=== PATIENT | female | born 1965 | race Caucasian/White ===

== ENCOUNTER 2019-11-23 17:06 | Emergency (ER) | payer OTHER, SELFPAY ==
[2019-11-23 17:15] VITALS: BP 137/70; PULSE 89; RESP 18; TEMP 36.5; O2SAT 97
--- NOTE | 2019-11-23 17:15 | ED.GENADULT ---
HPI - General Adult General Chief complaint: Skin/Abscess/Foreign Body Stated complaint: RASH TRUNK Time Seen by Provider: 11/23/19 17:19 Source: patient Mode of arrival: ambulatory Limitations: no limitations History of Present Illness HPI narrative: 54-year-old female patient presents to the [facility] with complaints of rash for the past week. Patient states she has had these course of bumps over various parts of her body especially her legs and arms. Patient states that she did just get back from [place] about a week ago. Patient states she has had similar bumps to her other leg as well that is been there for over a year. Patient states that she does have a boat and she does have a lot of sun exposure recently. Patient denies any itching. Denies any surrounding redness or discharge coming from the bump area. Patient states she has been using some lotion and some massage oil to the area. Patient denies any pain to the area. Related Data Home Medications Medication Instructions Recorded Confirmed alprazolam 0.25 mg BID 11/23/19 11/23/19 escitalopram oxalate 10 mg DAILY 11/23/19 11/23/19 estradiol 1 mg DAILY 11/23/19 11/23/19 estradiol-norethindrone acet 1 tablet DAILY 11/23/19 11/23/19 [Mimvey] levothyroxine 25 mcg DAILY 11/23/19 11/23/19 progesterone micronized 100 mg DAILY 11/23/19 11/23/19 temazepam 30 mg DAILY 11/23/19 11/23/19 Allergies Allergy/AdvReac Type Severity Reaction Status Date / Time No Known Allergies Allergy Verified 11/23/19 17:11 Review of Systems Review of Systems: Narrative: CONSTITUTIONAL: Denies fever, chills, or sweats. EYES: Denies visual changes, redness, or discharge. ENT: Denies rhinorrhea, congestion, sore throat, or otalgia. CARDIOVASCULAR: Denies chest pain, palpitations, or edema. RESPIRATORY: Denies cough or dyspnea. GASTROINTESTINAL: Denies abdominal pain, nausea, vomiting, or diarrhea. GENITOURINARY: Denies dysuria or hematuria. SKIN: Positive rash to left leg, bilateral arms and trunk x1 week MUSCULOSKELETAL: Denies back pain, joint pain, or myalgia. NEUROLOGIC: Denies headache, numbness, or weakness. PSYCHIATRIC: Denies anxiety or depression. PMFSH Social History Social History Gender identity (if verbalized by the patient): Female Comments At the time of my signature I agree with nursing past medical history, surgical, social, and family history. There is no relevant family history pertinent to the presenting complaint. Exam Narrative: Exam Narrative: GENERAL: Well-appearing, well-nourished, and in no acute distress. HEAD: Normocephalic, atraumatic. EYES: PERRLA and EOMI. ENT: Nares clear, no rhinorrhea or epistaxis. Mucous membranes moist. NECK: Supple. No lymphadenopathy CHEST: Clear to auscultation. No respiratory distress. HEART: Regular rate and rhythm. No murmur heard. Normal peripheral pulses. ABDOMEN: Soft, nontender, nondistended, normal active bowel sounds. EXTREMITIES: Normal range of motion. No edema. SKIN: Patient has very coarse bumpy rash noted to anterior upper leg, the forearm and upper arm of the left side, the forearm and upper arm of the right side, as well as to the abdomen area. There is no surrounding erythema no discharge coming from the area. No signs symptoms of infection. No complaints of itchiness. NEURO: No focal deficits. Alert and oriented x3. Course Vital Signs Vital signs: Vital Signs Temperature 36.5 C 11/23/19 17:15 Pulse Rate 89 11/23/19 17:15 Respiratory Rate 18 11/23/19 17:15 Blood Pressure 137/70 11/23/19 17:15 Pulse Oximetry 97 11/23/19 17:15 Temperature 36.5 C 11/23/19 17:15 Pulse Rate 89 11/23/19 17:15 Respiratory Rate 18 11/23/19 17:15 Blood Pressure 137/70 11/23/19 17:15 Pulse Oximetry 97 11/23/19 17:15 Vital signs reviewed. The patient has been informed that they may have pre-hypertension or Hypertension based on a BP re
== END 2019-11-23 17:38 | disposition home or self-care (01) ==
PROVIDERS: Emergency Provider Nurse Practitioner Family; PCP Nurse Practitioner Adult Health
DX: L30.9 Dermatitis, unspecified (principal); E03.9 Hypothyroidism, unspecified; F41.9 Anxiety disorder, unspecified; F32.9 Major depressive disorder, single episode, unspecified
CPT/HCPCS: 99213; G0463

== ENCOUNTER → 2020-03-04 15:06 | Outpatient (REF) | payer OTHER, SELFPAY | LOC: ANHLAB 15:06 | PROVIDERS: PCP Nurse Practitioner Adult Health; Visit Provider Nurse Practitioner Family | DX: L72.11 Pilar cyst (principal) | CPT/HCPCS: 88304 ==

== ENCOUNTER 2020-05-30 00:31 | Outpatient (CLI) | payer OTHER, SELFPAY ==
[2020-05-30 18:11] LABS: SARS-CoV-2 RNA PCR Negative
== END 2020-05-30 00:32 | disposition home or self-care (01) ==
LOC: ANHCOVIDDT 00:31
PROVIDERS: PCP Family Medicine; Visit Provider Surgery Plastic and Reconstructive Surgery
DX: Z01.812 Encounter for preprocedural laboratory examination (principal); Z11.59 Encounter for screening for other viral diseases
CPT/HCPCS: 87635; C9803; U0003

== ENCOUNTER 2020-06-02 01:51 | Day surgery (SDC) | payer OTHER, SELFPAY ==
[2020-05-20 13:32] VITALS: BMI 30.7
[2020-06-02] VITALS (9 sets, daily range): BP systolic 118–148; BP diastolic 68–77; PULSE 93–113; RESP 10–20; TEMP 36.2–36.5; O2SAT 95–100
[2020-06-02] MEDS: LACTATED RINGERS 1,000 ML 30 ML IV CONT ×2 (11:50→14:34)
--- NOTE | 2020-06-02 12:34 | WPDANESEPPF ---
Anes - Initial Pre Proc Eval Procedure: Operation Date: 06/02/20 13:45 Proposed Procedures p Bilateral Breast Implant Exchange - Ian Bunch MD Date/Time: 06/02/20 12:34 Surgeon: Ian Bunch MD Pre Op Diagnosis: Hx Breast Implants Patient Data Age: 55 Gender: F Height: 5 ft 2 in Weight: 76 kg Last Vital Signs Temp 36.5 C 06/02/20 11:46 Pulse 93 06/02/20 11:46 Resp 18 06/02/20 11:46 BP 118/74 06/02/20 11:46 Pulse Ox 97 06/02/20 11:46 Allergies Allergy/AdvReac Type Severity Reaction Status Date / Time No Known Allergies Allergy Verified 06/02/20 12:01 Home Medications Medication Instructions Recorded Confirmed Type alprazolam 0.25 mg PO HS PRN 11/23/19 06/02/20 History cetirizine [Zyrtec] 10 mg PO DAILY #30 tablet 11/23/19 06/02/20 Rx escitalopram oxalate 10 mg PO DAILY 11/23/19 06/02/20 History estradiol 1 mg PO DAILY 11/23/19 06/02/20 History levothyroxine 25 mcg PO DAILY 11/23/19 06/02/20 History progesterone micronized 100 mg PO DAILY 11/23/19 06/02/20 History temazepam 30 mg PO HS 11/23/19 06/02/20 History carisoprodol 350 mg tablet 350 mg PO TID PRN #21 tablet 05/18/20 06/02/20 Rx oxycodone-acetaminophen 5 mg-325 1 tablet PO Q6H PRN #15 tablet 05/18/20 06/02/20 Rx mg tablet ergocalciferol (vitamin D2) 50,000 unit PO WEEKLY 05/20/20 06/02/20 History Patient hx anesthesia problems: none Family hx anesthesia problems: none PMFSH Family History Family History Grandparent Diabetes mellitus Family history of Alzheimer's disease Other Family history of cardiovascular disease Social History Social History Smoking packs per day: 0.5 Smoking cigarettes per day: 10.0 Years smoked: 7 Smoking pack-years: 3.50 Smoking status: Current some day smoker Tobacco type: cigarettes Additional smoking assessment comments: QUIT AT AGE 24 Alcohol intake: current Drinks per week: 1 Gender identity (if verbalized by the patient): Female Spiritual care concerns: No Anes - Eval Final PreProcedure Day of Procedure 06/02/20 12:34 Patient weight: obese Heart: regular rate and rhythm Lungs: clear to auscultation Airway: Mallampati scale class II Neurological: alert and oriented Last oral intake: >/= 8 hours ASA classification: II Emergent: no Anesthetic plan: proceed Anesthesia type and monitoring: general LMA and standard monitoring Informed Consent: The patient's anesthetic plan and its attendant risks and benefits were discussed with the patient/family/POA. Questions were solicited and answers provided to the satisfaction of the patient/family/POA.
--- NOTE | 2020-06-02 12:36 | WPDHPUPDATE1 ---
History and Physical Update Update Date/Time: 06/02/20 12:36 History and Physical has been reviewed, including an updated exam of the patient. There are NO changes in the patient's condition. Risks, benefits, and alternatives have been discussed and questions answered. Patient agrees to proceed with procedure.
--- NOTE | 2020-06-02 12:53 | PM.PROC ---
Procedure Note - Detailed Date of procedure: 06/02/20 Pre-op diagnosis: Hx Breast Implants Post-op diagnosis: same Procedure performed: Bilateral breast implant exchange Description of procedure: Again today the risks, benefits, alternatives were discussed extensive detail. I want her to be very realistic about the risks involved as well as expectations. Her primary goals are to increase size just slightly, hopefully improve the irregularity in the right upper pole as well as discomfort. I was very up front honest this may not correct her findings or concerns. She may have the same situation or even worse. Further there is always risk of loss of implants due to infection, exposure, or other causes. Finally, she states she has smooth implants and does not wish to send the capsule. She understands the risks of not sending the capsule. She understands if I see anything concerning I would send and she is willing to accept this. All questions answered to her satisfaction and consent obtained. She would like proceed. She was marked in the preoperative holding area with her verification. She was taken to the operating room placed supine on the operating room table. Anesthesia was provided by anesthesiology and prepped and draped in a standard sterile fashion. Surgical time-out was taken. 1% lidocaine and 0.25% Marcaine with epinephrine was used anesthetize locally. Fifteen blade used to excise the previous IMF scar. Dissection was continued till the capsule was identified and removed the majority of the anterior capsule. Implants removed. Right implant was upside down. Laterally a left a portion of this capsule in used it for a popcorn capsulorrhaphy bilateral as she had some lateral migration when supine. I irrigated with more than 3 L of bacitracin containing saline. I verified a strict hemostasis. I then irrigated with triple antibiotic Betadine solution. Wash my gloves. Using a no-touch technique and a Gan funnel the implant was introduced into the pocket. This was closed with 2-0 Vicryl followed by 3-0 Monocryl in a running subcuticular 4-0 Monocryl and tissue glue. She tolerated well. Anesthesia: GLMA Surgeon: Ian Bunch MD Estimated blood loss (mL): 5 Drains: No Packing: No Pathology: none sent Complications: No immediate complications Disposition: PACU Findings: Old right implant was upside down (patch superficial). Style 15 implants. Majority of capsule removed. Vanda Burton SoftTouch 445cc Right: REF M-445 SN [id number] Left: REF M-445 SN [id number]
[2020-06-02] MEDS: ceFAZolin 2 GM/D5W 50 ML 2 GM/50 ML BAG IVPB (13:08)
[2020-06-02] MEDS: LIDO 1%/EPINEPHRINE 1:100,000 20 ML VIAL 30 ML INFILTRATE (13:08)
== END 2020-06-02 16:46 | disposition home or self-care (01) ==
PROVIDERS: PCP Family Medicine; Visit Provider Surgery Plastic and Reconstructive Surgery
PROC: (CPT 19342; principal; 2020-06-02 13:45)
DX: Z45.812 Encounter for adjustment or removal of left breast implant (principal); Z45.811 Encounter for adjustment or removal of right breast implant; F17.210 Nicotine dependence, cigarettes, uncomplicated; E66.9 Obesity, unspecified; Z68.30 Body mass index [BMI] 30.0-30.9, adult
CPT/HCPCS: 19371; 19340; J0690; J1100; J1580; J2250; J2405; J2704; J3010; J7120

== ENCOUNTER → 2020-09-02 14:27 | Outpatient (CLI) | payer OTHER, SELFPAY ==
--- NOTE | ~2020-09-02 | US_ITS ---
US transvaginal DATE: 09/02/2020 14:59 INDICATION: Postmenopausal bleeding (sporadic dark spotting), 3 times in the last year TECHNIQUE: Real-time imaging via transvaginal approach COMPARISON: None FINDINGS: The uterus measures approximately 8 cm height, 4.3 cm AP and 4.8 cm transverse dimension. The central endometrial echo complex measures 6 mm AP dimension. The ovaries are not visualized. No pelvic mass lesion or abnormal pelvic fluid collection is detecte d. IMPRESSION: Limited examination; normal thickness of endometrial echo Reviewed, dictated and finalized at [facility]. Reviewed, dictated and finalized at location [facility]. CHANGER
== END ==
PROVIDERS: PCP Family Medicine; Visit Provider Obstetrics & Gynecology Gynecology
DX: N95.0 Postmenopausal bleeding (principal)
CPT/HCPCS: 76830

== ENCOUNTER → 2021-03-11 11:25 | Outpatient (CLI) | payer OTHER, SELFPAY ==
--- NOTE | ~2021-03-11 | XR_ITS ---
XR chest 2V DATE: 03/11/2021 11:34 INDICATION: Shortness of breath TECHNIQUE: 2 views COMPARISON: None FINDINGS: Normal heart size. No hilar or mediastinal enlargement. No pulmonary infiltrate or consolid ation, pleural effusion or pulmonary vascular congestion or pneumothorax. Surgical clips, right upper quadrant, likely due to cholecystectomy. Included skeletal structures are unremarkable. IMPRESSION: No active cardiopulmonary disease Status post cholecystectomy Reviewed, dictated and finalized at location [facility].
== END ==
PROVIDERS: Visit Provider Physician Assistant
DX: R06.02 Shortness of breath (principal); Z90.49 Acquired absence of other specified parts of digestive tract
CPT/HCPCS: 71046

== ENCOUNTER 2021-03-16 07:56 | Outpatient (CLI) | payer OTHER, SELFPAY ==
--- NOTE | ~2021-03-16 | CT_ITS ---
EXAMINATION: CT abdomen pelvis w con INDICATION: Epigastric pain TECHNIQUE: Computed tomographic images of the abdomen and pelvis were obtained after the administrati on of 100 cc of Omnipaque 350 intravenous contrast. The dose-length product (DLP) was 604.43 mGy-cm. Automated exposure control and iterative reconstruction technique were employed. COMPARISON: 04/16/2012 FINDINGS: Minimal dependent atelectasis is present in the lung bases. The heart size is normal. Bilat eral breast implants are noted. The gallbladder is surgically absent. The liver, spleen, pancreas, an d adrenal glands are normal. The kidneys are unremarkable. A retroaortic left renal vein is noted. No pathologically enlarged abdominal or pelvic lymph nodes are identified. There is no free intraperito grace gas or evidence of bowel obstruction. The appendix is normal. There is a small fat-containing um bilical hernia. IMPRESSION: 1. No CT correlate for the patient's symptoms. Reviewed, dictated and finalized at location [facility].
== END 2021-03-16 07:57 | disposition home or self-care (01) ==
PROVIDERS: PCP Family Medicine; Visit Provider Physician Assistant
DX: R10.9 Unspecified abdominal pain (principal)
CPT/HCPCS: 74177; Q9967

== ENCOUNTER 2021-07-24 12:03 | Emergency (ER) | payer BC, SELFPAY ==
[2021-07-24 12:13] VITALS: BP 124/60; PULSE 94; RESP 18; TEMP 36.6; O2SAT 99
--- NOTE | 2021-07-24 12:32 | ED.FEMALEGU ---
HPI - Female Genitourinary General Chief complaint: Urogenital-Female Stated complaint: UTI History of Present Illness HPI Narrative: Patient is a 56-year-old female who presents complaining of frequency, urgency, hematuria and dysuria x2 days. She denies lower back or flank pain. She reports taking zedc-kty-wjhlhoi bladder medication prior to arrival. She did not denies significant medical history. She denies fever, chills or body aches. Related Data Home Medications Medication Instructions Recorded Confirmed levothyroxine 25 mcg PO DAILY 11/23/19 07/07/21 progesterone micronized 100 mg PO DAILY 11/23/19 07/07/21 ergocalciferol (vitamin D2) 50,000 unit PO WEEKLY 05/20/20 07/07/21 trazodone 50 mg tablet 50 mg PO DAILY tablet 06/08/20 07/07/21 estradiol 1 mg tablet 1 mg PO DAILY 07/07/21 07/07/21 Allergies Allergy/AdvReac Type Severity Reaction Status Date / Time No Known Allergies Allergy Verified 07/24/21 12:39 Review of Systems Review of Systems: CONSTITUTIONAL: Denies fever, chills, or sweats. EYES: Denies visual changes, redness, or discharge. ENT: Denies rhinorrhea, congestion, sore throat, or otalgia. CARDIOVASCULAR: Denies chest pain, palpitations, or edema. RESPIRATORY: Denies cough or dyspnea. GASTROINTESTINAL: Denies abdominal pain, nausea, vomiting, or diarrhea. GENITOURINARY: Reports dysuria, hematuria, frequency and urgency x2 days SKIN: Denies rash or itching. MUSCULOSKELETAL: Denies back pain, joint pain, or myalgia. NEUROLOGIC: Denies headache, numbness, dizziness, or weakness. PSYCHIATRIC: Denies anxiety or depression. [facility] Past Medical History Medical History Anxiety Depression Hypothyroidism Surgical History Surgical History Hx of cholecystectomy Family History Family History Grandparent Diabetes mellitus Family history of Alzheimer's disease Heart disease Sibling Depression Other Family history of cardiovascular disease Social History Social History Smoking packs per day: 0.5 Smoking cigarettes per day: 10.0 Years smoked: 7 Smoking pack-years: 3.50 Tobacco type: cigarettes Additional smoking assessment comments: QUIT AT AGE 24 Alcohol intake: current Drinks per week: 10 Gender identity (if verbalized by the patient): Female Spiritual care concerns: No Comments At the time of signature, I have reviewed and agree with nursing past medical, surgical, social, and family history unless otherwise noted. Please see nursing chart for further information. There is no relevant family history pertinent to the presenting complaint. Exam Narrative: GENERAL: Well-appearing, well-nourished, and in no acute distress. HEAD: Normocephalic, atraumatic. EYES: EOMI. No redness or drainage. Conjunctiva are normal. ENT: Mucous membranes pink and moist. CHEST: No respiratory distress. HEART: Regular rate and rhythm. No murmur appreciated. Normal peripheral pulses. : No CVA tenderness, no lower abdominal pain with palpation EXTREMITIES: Normal range of motion. No edema. SKIN: Warm, dry, no rash. NEURO: No focal deficits. Alert and oriented x3. Gait steady. PSYCH: Normal affect. No signs of depression or anxiety. Course Vital Signs Vital signs: Vital Signs Temperature 36.6 C 07/24/21 12:13 Pulse Rate 94 07/24/21 12:13 Respiratory Rate 18 07/24/21 12:13 Blood Pressure 124/60 07/24/21 12:13 Pulse Oximetry 99 07/24/21 12:13 Temperature 36.6 C 07/24/21 12:13 Pulse Rate 94 07/24/21 12:13 Respiratory Rate 18 07/24/21 12:13 Blood Pressure 124/60 07/24/21 12:13 Pulse Oximetry 99 07/24/21 12:13 Reviewed MDM - Female Genitourinary Differential Diagnosis Differential diagnosis: Likely urinary tract infec
== END 2021-07-24 12:55 | disposition home or self-care (01) ==
PROVIDERS: Emergency Provider Nurse Practitioner; PCP Family Medicine
DX: N39.0 Urinary tract infection, site not specified (principal); Z87.891 Personal history of nicotine dependence; F41.9 Anxiety disorder, unspecified; F32.A Depression, unspecified; E03.9 Hypothyroidism, unspecified
CPT/HCPCS: 81003; 87077; 87086; 87088; 87186; 99213; G0463

== ENCOUNTER 2022-09-01 02:14 | Day surgery (SDC) | payer BC, SELFPAY ==
[2022-08-23 14:07] VITALS: BMI 32.0
--- NOTE | 2022-08-31 14:33 | PM.HPGS ---
History of Present Illness History of Present Illness Consent: Risks, benefits, and alternatives have been discussed and questions answered. Patient agrees to proceed with procedure. Chief complaint: hx colon polyps Narrative: Nataliya Wright is a 57 year old female Referred for colon cancer screening. Her last colonoscopy was 5 years ago. At that time she had 2 small polyps removed. Review of Systems Review of Systems: All systems reviewed & are unremarkable except as noted in HPI and below PMFSH Past Medical History Medical History Anxiety Depression Hypothyroidism Surgical History Surgical History Hx of cholecystectomy Family History Family History Grandparent Diabetes mellitus Family history of Alzheimer's disease Heart disease Sibling Depression Other Family history of cardiovascular disease Social History Social History Smoking packs per day: 1 Smoking cigarettes per day: 20.0 Years smoked: 7 Smoking pack-years: 7.00 Smoking status: Former smoker Tobacco type: cigarettes Additional smoking assessment comments: QUIT AT AGE 24 Alcohol intake: current Drinks per week: 10 Living arrangements: with family Gender identity (if verbalized by the patient): Female Spiritual care concerns: No Meds Home Medications and Allergies Home Medications Medication Instructions Recorded Confirmed Type cetirizine 10 mg tablet (Zyrtec) 10 mg PO DAILY #30 tabs 11/23/19 08/23/22 Rx levothyroxine 25 mcg tablet 25 mcg PO DAILY 11/23/19 08/23/22 History progesterone micronized 100 mg 100 mg PO DAILY 11/23/19 08/23/22 History capsule ergocalciferol (vitamin D2) 1,250 50,000 unit PO WEEKLY 05/20/20 08/23/22 History mcg (50,000 unit) capsule trazodone 50 mg tablet 50 mg PO DAILY 06/08/20 08/23/22 History valacyclovir 500 mg tablet 500 mg PO Q12H PRN cold sores #90 11/03/20 08/23/22 Rx (Valtrex) tabs estradiol 1 mg tablet 1 mg PO DAILY 07/07/21 08/23/22 History alprazolam 0.25 mg tablet 0.25 mg PO BID 07/24/21 08/23/22 History cholestyramine-aspartame 4 gram 1 ea PO DAILY 07/24/21 08/23/22 History oral powder (Cholestyramine Light) estradiol 2 mg (7.5 mcg/24 hour) 1 vag ring vaginal [id number] 07/24/21 08/23/22 History vaginal ring (Estring) pantoprazole 40 mg tablet,delayed 40 mg PO QAM #30 tabs 06/03/22 08/23/22 Rx release (Protonix) fluoxetine 40 mg capsule (Prozac) 40 mg PO DAILY 08/23/22 08/23/22 History Allergies Allergy/AdvReac Type Severity Reaction Status Date / Time No Known Allergies Allergy Verified 09/01/22 08:30 Exam Const: General: alert Orientation/consciousness: patient oriented x3 Resp: Auscultation: clear to auscultation bilaterally Cardio: Rhythm: regular rhythm GI: GI Palp: Yes Soft to palpation and No Tenderness to palpation present (GI) Neuro: General: patient oriented x3 Assessment and Plan Assessment and plan (1) Colon cancer screening: Code(s): Z12.11 - Encounter for screening for malignant neoplasm of colon Status: Acute Assessment and Plan: Colonoscopy with possible biopsy or polypectomy or cautery or injection of substances.
[2022-09-01 08:34] VITALS: BP 119/72; PULSE 104; RESP 18; TEMP 36.2; O2SAT 97
[2022-09-01] MEDS: LACTATED RINGERS 1,000 ML 150 ML IV CONT (08:40)
--- NOTE | 2022-09-01 09:16 | WPDANESEPPF ---
Anes - Initial Pre Proc Eval Procedure: Operation Date: 09/01/22 09:45 Proposed Procedures p Screening Colonoscopy - Torey Gonzalez MD Date/Time: 09/01/22 09:16 Surgeon: Torey Gonzalez MD Pre Op Diagnosis: hx colon polyps Patient Data Age: 57 Gender: F Height: 1.57 m Weight: 79.2 kg Last Vital Signs Temp 97.1 F L 09/01/22 08:34 Pulse 104 H 09/01/22 08:34 Resp 18 09/01/22 08:34 BP 119/72 09/01/22 08:34 Pulse Ox 97 09/01/22 08:34 O2 Del Method Room Air 09/01/22 08:34 Allergies Allergy/AdvReac Type Severity Reaction Status Date / Time No Known Allergies Allergy Verified 09/01/22 08:30 Home Medications Medication Instructions Recorded Confirmed Type cetirizine 10 mg tablet (Zyrtec) 10 mg PO DAILY #30 tabs 11/23/19 08/23/22 Rx levothyroxine 25 mcg tablet 25 mcg PO DAILY 11/23/19 08/23/22 History progesterone micronized 100 mg 100 mg PO DAILY 11/23/19 08/23/22 History capsule ergocalciferol (vitamin D2) 1,250 50,000 unit PO WEEKLY 05/20/20 08/23/22 History mcg (50,000 unit) capsule trazodone 50 mg tablet 50 mg PO DAILY 06/08/20 08/23/22 History valacyclovir 500 mg tablet 500 mg PO Q12H PRN cold sores #90 11/03/20 08/23/22 Rx (Valtrex) tabs estradiol 1 mg tablet 1 mg PO DAILY 07/07/21 08/23/22 History alprazolam 0.25 mg tablet 0.25 mg PO BID 07/24/21 08/23/22 History cholestyramine-aspartame 4 gram 1 ea PO DAILY 07/24/21 08/23/22 History oral powder (Cholestyramine Light) estradiol 2 mg (7.5 mcg/24 hour) 1 vag ring vaginal [id number] 07/24/21 08/23/22 History vaginal ring (Estring) pantoprazole 40 mg tablet,delayed 40 mg PO QAM #30 tabs 08/12/22 11/01/22 Rx release (Protonix) fluoxetine 40 mg capsule (Prozac) 40 mg PO DAILY 08/23/22 08/23/22 History Patient hx anesthesia problems: none Family hx anesthesia problems: none Results Review: All pre-operative results and documents have been reviewed as part of the pre-operative evaluation. [facility] Past Medical History Medical History Anxiety Depression Hypothyroidism Surgical History Surgical History Hx of cholecystectomy Family History Family History Grandparent Diabetes mellitus Family history of Alzheimer's disease Heart disease Sibling Depression Other Family history of cardiovascular disease Social History Social History Smoking packs per day: 1 Smoking cigarettes per day: 20.0 Years smoked: 7 Smoking pack-years: 7.00 Smoking status: Former smoker Tobacco type: cigarettes Additional smoking assessment comments: QUIT AT AGE 24 Alcohol intake: current Drinks per week: 10 Living arrangements: with family Gender identity (if verbalized by the patient): Female Spiritual care concerns: No Anes - Eval Final PreProcedure Day of Procedure 09/01/22 09:16 Patient weight: obese Heart: regular rate and rhythm Lungs: clear to auscultation Airway: Mallampati scale class II Neurological: alert and oriented Last oral intake: >/= 8 hours ASA classification: II Emergent: no Anesthetic plan: proceed Anesthesia type and monitoring: general GIVS and standard monitoring Results Review: All pre-operative results and documents have been reviewed as part of the pre-operative evaluation. Informed Consent: The patient's anesthetic plan and its attendant risks and benefits were discussed with the patient/family/POA. Questions were solicited and answers provided to the satisfaction of the patient/family/POA.
[2022-09-01 10:03] VITALS: BP 96/60; PULSE 84; RESP 19; O2SAT 98
[2022-09-01 10:13] VITALS: BP 112/71; PULSE 79; RESP 22; O2SAT 99
[2022-09-01 10:23] VITALS: BP 136/65; PULSE 72; RESP 17; O2SAT 100
== END 2022-09-01 10:36 | disposition home or self-care (01) ==
PROVIDERS: PCP Family Medicine; Visit Provider Internal Medicine Gastroenterology
PROC: 0DJD8ZZ Inspection of Lower Intestinal Tract, Via Natural or Artificial Opening Endoscopic (ICD-10-PCS; CPT 45378; principal; 2022-09-01 09:45)
DX: Z12.11 Encounter for screening for malignant neoplasm of colon (principal); K64.8 Other hemorrhoids; K57.30 Diverticulosis of large intestine without perforation or abscess without bleeding; Z86.010 Personal history of colon polyps; E03.9 Hypothyroidism, unspecified; F41.9 Anxiety disorder, unspecified; F32.A Depression, unspecified; Z87.891 Personal history of nicotine dependence; E66.9 Obesity, unspecified; Z68.31 Body mass index [BMI] 31.0-31.9, adult
CPT/HCPCS: 45378; J2704; J7120

== ENCOUNTER 2023-04-20 09:20 | Outpatient (CLI) | payer BC, SELFPAY ==
[2023-04-20 19:44] LABS: Hematocrit 39.7 % (37.0-47.0); Hemoglobin 13.2 g/dL (12.0-15.0); Mean Corpuscular HGB Conc 33.2 g/dl (32-36); Mean Corpuscular Volume 96.4 fl (80-100); Mean Platelet Volume 9.9 fl (7.4-10.4); Platelet Count Result 340 k/mm3 (150-375); Red Blood Count 4.12 M/mm3 (4.2-5.4); Red Cell Distribution Width 12.9 % (11.5-14.5); White Blood Count 9.4 K/mm3 (4.5-10.0)
[2023-04-20 20:39] LABS: Vitamin D 25 Hydroxy 48.5 ng/mL
[2023-04-20 20:40] LABS: Alanine Aminotransferase 42 U/L (6-35); Albumin Level 4.2 g/dL (3.5-5.1); Alkaline Phosphatase 71 U/L (38-126); Anion Gap 6 mmol/L (8-16); Aspartate Amino Transferase 50 U/L (14-36); Bilirubin,Total 0.4 mg/dL (0.2-1.3); Blood Urea Nitrogen 15 mg/dL (7-17); Calcium 8.8 mg/dL (8.4-10.2); Carbon Dioxide 27 mmol/L (22-30); Chloride 106 mmol/L (98-107); Cholesterol 199 mg/dL (0-200); Estimated Glomerular Filt Rate > 60; Glucose 96 mg/dL (65-110); HDL Direct 34 mg/dL; Potassium 4.4 mmol/L (3.4-5.0); Sodium 139 mmol/L (137-145); Triglycerides 315 mg/dL (<150)
[2023-04-20 21:05] LABS: LDL Cholesterol Direct 127 mg/dL
== END 2023-04-20 09:21 | disposition home or self-care (01) ==
LOC: ANHGOSHLAB 09:25
PROVIDERS: PCP Family Medicine; Visit Provider Family Medicine
DX: R53.83 Other fatigue (principal); E55.9 Vitamin D deficiency, unspecified; E78.2 Mixed hyperlipidemia; K52.9 Noninfective gastroenteritis and colitis, unspecified
CPT/HCPCS: 36415; 80053; 80061; 82306; 84443; 85027

== ENCOUNTER 2024-01-09 06:38 | Outpatient (CLI) | payer BC, SELFPAY ==
--- NOTE | ~2024-01-09 | CT_ITS ---
EXAMINATION: CT abdomen pelvis w con DATE: 01/09/2024 07:21 INDICATION: Left-sided abdominal pain for 2 years. Tailbone pain. No trauma. TECHNIQUE: Computed tomography (CT) of the abdomen and pelvis was performed with 100 CC Omnipaque 350 intravenous contrast. Automated exposure control and iterative reconstruction technique were employe d. Exam dose: 751.96 mGy-cm total exam DLP. COMPARISON: 03/16/2021 CT abdomen pelvis FINDINGS: Breast implants. Bilateral chronic fat-containing foramen of Bochdalek hernias. The lung bases are clear of infiltrate or consolidation. Normal heart size. No pericardial or pleural effusion. Small sliding hiatal hernia. Status post cholecystectomy. No hepatic, splenic, pancreatic, adrenal or renal space-occupying mass l esion is detected. Retroaortic left renal vein. Normal caliber of the abdominal aorta. No intraperitoneal or retroperito grace or pelvic mass lesion or adenopathy or ascites. The uterus, adnexal areas and largely evacuated urinary bladder are unremarkable. Normal appendix. Diverticulosis of the colon; no CT evidence of diverticulitis. No bowel obstruction, bowel wall thickening, pneumatosis or intraperitoneal free air is detected. Small fat-containing umbilical hernia. Focal sclerotic lesions of T11 and L1 vertebral bodies, right ilium and femoral heads date back to , most likely benign bone islands. No suspicious osteolytic or osteoblastic lesions are noted. IMPRESSION: Status post cholecystectomy Normal appendix Diverticulosis of the colon; no CT evidence of diverticulitis Reviewed, dictated and finalized at [facility]. Reviewed, dictated and finalized at location [facility].
== END 2024-01-09 06:39 | disposition home or self-care (01) ==
PROVIDERS: PCP Family Medicine; Visit Provider Nurse Practitioner Family
DX: K62.89 Other specified diseases of anus and rectum (principal); R10.9 Unspecified abdominal pain; Z90.49 Acquired absence of other specified parts of digestive tract; K57.90 Diverticulosis of intestine, part unspecified, without perforation or abscess without bleeding
CPT/HCPCS: 74177; Q9967

== ENCOUNTER 2024-02-13 09:22 | Outpatient (CLI) | payer BC, SELFPAY ==
[2024-02-19 22:17] LABS: Pancreatic Elastase, Stool >500 mcg/g
== END 2024-02-13 09:23 | disposition home or self-care (01) ==
PROVIDERS: PCP Family Medicine; Visit Provider Nurse Practitioner Family
DX: R19.7 Diarrhea, unspecified (principal)
CPT/HCPCS: 82653; 87045; 87177; 87209; 87269; 87427; 87449

== ENCOUNTER 2024-05-14 11:12 | Outpatient (CLI) | payer BC, SELFPAY ==
[2024-05-14 11:48] LABS: Basophils Percent Auto 0.3 % (0.2-1.2); Eosinophils Absolute Auto 0.1 K/mm3 (0-0.3); Eosinophils Percent Auto 0.7 % (0-4.4); Hematocrit 43.8 % (37.0-47.0); Hemoglobin 14.7 g/dL (12.0-15.0); Immature Granulocyte Absolute 0.03 K/mm3 (0.00-0.031); Immature Granulocyte Percent A 0.3 % (0-0.5); Lymphocytes Absolute Auto 2.81 K/mm3 (0.9-3.2); Lymphocytes Percent Auto 31.5 % (18.3-44.2); Mean Corpuscular HGB Conc 33.6 g/dl (32-36); Mean Corpuscular Hemoglobin 32.6 pg (26-34); Mean Corpuscular Volume 97.1 fl (80-100); Mean Platelet Volume 10.7 fl (7.4-10.4); Monocytes Absolute Auto 0.5 K/mm3 (0.1-0.6); Monocytes Percent Auto 5.9 % (2.6-8.5); Neutrophils Absolute Auto 5.5 K/mm3 (1.3-6.7); Neutrophils Percent Auto 61.3 % (45.5-73.1); Platelet Count Result 297 k/mm3 (150-375); Red Blood Count 4.51 M/mm3 (4.2-5.4); Red Cell Distribution Width 13.1 % (11.5-14.5); White Blood Count 8.9 K/mm3 (4.5-10.0)
[2024-05-14 12:03] LABS: Alanine Aminotransferase 32 U/L (6-35); Albumin Level 4.6 g/dL (3.5-5.1); Alkaline Phosphatase 57 U/L (38-126); Anion Gap 10 mmol/L (4-12); Aspartate Amino Transferase 35 U/L (14-36); Bilirubin,Total 0.5 mg/dL (0.2-1.3); Blood Urea Nitrogen 11 mg/dL (7-17); Calcium 8.9 mg/dL (8.4-10.2); Carbon Dioxide 26 mmol/L (22-30); Chloride 100 mmol/L (98-107); Cholesterol 192 mg/dL (0-200); Estimated Glomerular Filt Rate > 60; Glucose 86 mg/dL (65-110); HDL Direct 41 mg/dL; Potassium 4.3 mmol/L (3.4-5.0); Sodium 136 mmol/L (137-145); Triglycerides 144 mg/dL (<150)
[2024-05-14 12:14] LABS: LDL Cholesterol Direct 122 mg/dL
[2024-05-14 12:48] LABS: Vitamin B12 > 1000.0 pg/mL (239-931)
== END 2024-05-14 11:13 | disposition home or self-care (01) ==
PROVIDERS: PCP Family Medicine; Visit Provider Family Medicine
DX: E78.2 Mixed hyperlipidemia (principal); R20.2 Paresthesia of skin; R53.83 Other fatigue; F32.9 Major depressive disorder, single episode, unspecified; R10.9 Unspecified abdominal pain
CPT/HCPCS: 36415; 80053; 80061; 82607; 84443; 85025

== ENCOUNTER 2024-05-29 09:27 | Outpatient (CLI) | payer BC, SELFPAY ==
--- NOTE | ~2024-05-29 | XR_ITS ---
XR abdomen obstructive series Ordering provider: Rocio Lei MD History: . R10.9 - Unspecified abdominal pain . Comparison: None. FINDINGS: BOWEL: Nonobstructive bowel gas pattern. ORGANOMEGALY: Hepatomegaly. Status post cholecystectomy. SIGNIFICANT PATHOLOGIC CALCIFICATIONS: None. Calcification seen in the pelvis are most likely phleb oliths. OTHER: No free air is seen under the diaphragm. IMPRESSION: NO definite ACUTE ABDOMINAL FINDINGS. Clinically still suspicious CT is advised. Hepatomegaly. Reviewed, dictated and finalized at location [facility].
== END 2024-05-29 09:28 ==
PROVIDERS: PCP Family Medicine; Visit Provider Family Medicine
DX: R10.9 Unspecified abdominal pain (principal)
CPT/HCPCS: 74019

== ENCOUNTER 2024-05-31 09:11 | Outpatient (CLI) | payer BC, SELFPAY ==
--- NOTE | ~2024-05-31 | CT_ITS ---
CT of the Abdomen and Pelvis: Indication: Abdominal pain Technique: 2.5 mm axial scans were obtained through the abdomen and pelvis following intravenous adm inistration of 100 cc of Omnipaque 350. Dose reduction technique was used on this scan by utilizing a utomated exposure control and iterative reconstruction technique. The dose-length product (DLP) was 5 42.38 mGy-cm. COMPARISON: 01/09/2024 Findings: Scans through the lung bases are unremarkable. The liver, spleen, pancreas, adrenals and kidneys are within normal limits. Cholecystectomy clips are present. No evidence of aortic aneurysm. No lymphadenopathy. There is mild inflammatory change the sigmoid colon with underlying diverticulosis, compatible with v hebert mild acute diverticulitis. No abscess or free air. No bowel obstruction. Images through the pelvis were performed. Urinary bladder unremarkable. No pelvic mass seen. No ascit es. Impression: Mild acute sigmoid diverticulitis. No abscess or free air. Reviewed, dictated and finalized at [facility]. Impression: Mild acute sigmoid diverticulitis. No abscess or free air.
== END 2024-05-31 09:12 | disposition home or self-care (01) ==
PROVIDERS: PCP Family Medicine; Visit Provider Family Medicine
DX: D72.829 Elevated white blood cell count, unspecified (principal); R10.9 Unspecified abdominal pain; K57.32 Diverticulitis of large intestine without perforation or abscess without bleeding
CPT/HCPCS: 74177; Q9967

== ENCOUNTER 2025-02-11 08:42 | Outpatient (CLI) | payer BC, SELFPAY ==
--- NOTE | ~2025-02-11 | MR_ITS ---
MR breast BI wo con 02/11/2025 10:21 CDT INDICATION: Breast implants that is TECHNIQUE: MRI of the breasts perform using standard protocol pre-and post IV contrast with the follo wing sequences: Axial T2 fast spin-echo, 3-D axial vibrant, sagittal T2 with and without silicone sup pression. No contrast administered.. COMPARISON: Mammogram and ultrasound dated 10/25/2024 FINDINGS: There are bilateral subglandular silicone implants. No evidence for intracapsular or extrac apsular rupture. No lymphadenopathy. No suspicious masses are identified. IMPRESSION: 1: No evidence for breast implant rupture on either side. Routine yearly screening mammogram and regular clinical breast examination are recommended. BI-RADS CATEGORY 1 - NEGATIVE Reviewed, dictated and finalized at location A.
--- OUTSIDE RECORDS SUMMARY | 2025-02-11 09:15 | XMS_ITS | Clinical Summary ---
Author Organization [facility] [employer] Address [address] [place] [address] Care Team Providers Care Resin Maker Name Role Phone Unknown, Provider Primary Care Provider Unavaila ble Source Comments [facility],non-owned Affiliates and Associated Physician Practices is amultiple site organization consisting of ambulatory clinics and hospital sitesin [place], [place], [place] and [place]. This disclosure is being madepursuant to the Care Everywhere program and may not contain all information available regarding this patient. 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 Gender Identity Not on file Sexual Orientation Not on file Plan of Treatment Health Maintenance Due Date Last Done Comments COLOGUARD (AGES 45-75) - COL ON CA SCREENING 1966 COLON MONITORING 1966 COLONOSCOPY - COLON CA SCREENING 1966 CT COLONOGRAPHY - COLON CA SCREENING 1966 Colorectal Cancer Screening 1966 FIT - COLON CA SCREENING 1966 FLEX SIG - COLON CA SCREENING 1966 LIPID TESTING 1966 MAMMOGRAM 1966 HIV SCREENING 1981 HEPATITIS C SCREENING 01/05/1984 DTAP/TDAP/TD VACCINES (1 - Tdap) 1985 HEPATITIS B VACCINE (1 of 3 - 19+ 3-dose series) 1985 PNEUMOCOCCAL VACCINE 50+ (1 of 1 - PCV) 01/10/2016 ZOSTER VACCINE (1 of 2) 01/10/2016 COVID-19 VACCINE (2023-2 5 season) 2024 DEPRESSION SCREENING 10/23/2024 INFLUENZA VACCINE (Season Ended) 2025 HIB VACCINE Aged Out No longer eligi ble based on patient's age to complete this topic HPV VACCINE Aged Out No longer eligi ble based on patient's age to complete this topic MENINGOCOCCAL (Group B) VACC INE SHARED DECISION-MAKING Aged Out No longer eligibl e based on patient's age to complete this topic MENINGOCOCCAL GROUPS A/C/Y/W VACCINE Aged Out No longer eligible b ased on patient's age to complete this topic Insurance AETNA AETNA Care Teams Resin Maker Relationship Specialty Start Date End Date Unknown, Provider PCP - General 03/02/18
--- OUTSIDE RECORDS SUMMARY | 2025-02-11 09:15 | XMS_ITS | Referral Summary ---
Author Organization [facility] Medical [facility] [place] 2 Address [address] [place] [address] Care Team Providers Care Tip Banding Machine Operator Name Role Phone MarbinCyndi mcclellan LORRAINE Primary Care Provider [phone] Deon José MD Unavailable [phone] Gabriel Sanders MD Unavailable [phone] Allergies Active Allergy Reactions Criticality Noted Date Comments Bupropion Other (See comments) Low 04/13/2020 Citalopram Headache Low 04/13/2020 Desvenlafaxine Succinate Other (See comments) Low 0 04/13/2020 Fluoxetine Other (See comments) Low 04/13/2020 Paroxetine Headache Low 04/13/2020 Medications ALPRAZolam (XANAX) 0.25 mg tablet 0 8 Active escitalopram (LEXAPRO) 10 mg tablet TK 1 T PO ONCE D 5 8 Active penicillin v potassium (VEETID) 500 mg tablet TK 1 T PO Q 6 H TAT 0 8 Active ELMIRON 100 mg capsule TK ONE C PO TID 2 8 Active temazepam (RESTORIL) 30 mg capsuleIndicat ions:Insomnia 1 8 Active traMADol (ULTRAM) 50 mg tablet 0 8 Active traZODone (DESYREL) 50 mg tablet TK 1 T PO QHS 4 8 Active CLIMARA PRO 0.045-0.015 mg/24 hr DUDLEY 1 PA EXT TO THE SKIN Q 7 DAYS 3 8 Active levothyroxine (SYNTHROID, LEVOTHROID) 25 mcg tablet TK 1 T PO QD 2 8 Active tobramycin-dex amethasone (TOBRADEX) ophthalmic solution INSTILL 1 DROP IN BOTH EYES QID FOR 10-14 DAYS 1 8 Active methylPREDNISo lone (MEDROL DOSEPACK) 4 mg Dosepack TK UTD 0 9 Active fluconazole (DIFLUCAN) 150 mg tablet TK 1 T PO PRN FOR 1 DAY 0 9 Active MIMVEY 1-0.5 mg per tablet TK 1 T PO QD 10 9 Active amoxicillin-cl avulanate (AUGMENTIN) 875-125 mg per tablet TK 1 T PO Q 12 H FOR 10 DAYS 0 9 Active ZOVIRAX 5 % cream DUDLEY UTD 1 8 Active estradiol (ESTRACE) 1 mg tablet TK 1 T PO D 0 9 Active progesterone (PROMETRIUM) 100 mg capsule TK 1 C PO QHS 0 9 Active ergocalciferol (VITAMIN D) 50,000 unit capsule ergocalciferol (vitamin D2) 1,250 mcg (50,000 unit) capsule TK 1 C PO Q 7 DAYS Active lorcaserin 10 mg tablet Belviq 10 mg tablet Active Active Problems Problem Noted Date Diagnosed Date Capsular contracture of breast implant 0 Overview (05/08/2020): Added automatically from request for surgery [id number] Anxiety 04/13/2020 Depressive disorder 04/13/2020 Hemorrhoids 04/13/2020 Herpes labialis 04/13/2020 Insomnia 04/13/2020 Mechanical complication due to breast prosthesis 12/27/2010 Grade III hemorrhoids Immunizations Immunization Administration Dates Next Due Tdap 11/08/2010 Social History Tobacco Use Types Packs/Day Years Used Date Smoking Tobacco: Former Personal Safety Answer Date Recorded Getting School Help Needed Not on file 01/05 Comments Unknown Sex and Gender Information Value Date Recorded Sex Assigned at Not on file 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 Gender Identity Not on file Sexual Orientation Not on file Last Filed Vital Signs Vital Sign Reading Time Taken Comments Blood Pressure 110/76 01/18/2019 2:09 PM CDT Pulse 87 01/18/2019 2:09 PM CDT Temperature 36.9 C (98.4 F) 01/18/2019 2:09 PM CDT Respiratory Rate - - Oxygen Saturation - - Inhaled Oxygen Concentration - - Weight 77.1 kg (170 lb) 04/13/2020 12:06 PM CDT Height 172.7 cm (5' 8 ) 04/13/2020 12:06 PM CDT Body Mass Index 25.85 04/13/2020 12:06 PM CDT Plan of Treatment Not on file Insurance AETNA SIG [id number] AETNA SIG [id number] Care Teams Tip Banding Machine Operator Relationship Specialty Start Date End Date Cyndi Robins NP PCP - General 02/15/18 Deon José MD Deputy Sheriff Generalist Gastroenterology 01/20/19 Gabriel Sanders MD Surgeon Colon and Rectal Surgery 01/20/19
--- OUTSIDE RECORDS SUMMARY | 2025-02-11 09:15 | XMS_ITS | Clinical Summary ---
Author Organization [facility] Address [address] [place] [address] Care Team Providers Care Emergency Vehicle Operations Instructor Name Role Phone Rocio Lei MD Primary Care Provider [phone] Allergies No known active allergies Medications No known medications Family History Medical History Relation Comments Breast Cancer Neg Hx Social History Tobacco Use Types Packs/Day Years Used Date Smoking Tobacco: Former Cigarettes 1 9 1989 Smokeless Tobacco: Never Tobacco Cessation:Counseling Given: No Alcohol Use Standard Drinks/Week Comments Yes 0 (1 standard drink = 0.6 oz pur e alcohol) occasionally Comments No Sex and Gender Information Value Date Recorded Sex Assigned at Not on file Legal Sex Female 3:50 PM OCEAN FREIGHT AGENT Gender Identity Not on file Sexual Orientation Not on file Last Filed Vital Signs Vital Sign Reading Time Taken Comments Blood Pressure 108/70 09/06/2024 11:01 PM OCEAN FREIGHT AGENT Pulse 94 09/06/2024 11:22 PM OCEAN FREIGHT AGENT Temperature 36.3 C (97.3 F) 09/06/2024 11:01 PM OCEAN FREIGHT AGENT Respiratory Rate 19 09/06/2024 11:22 PM OCEAN FREIGHT AGENT Oxygen Saturation 94% 09/06/2024 11:20 PM OCEAN FREIGHT AGENT Inhaled Oxygen Concentration - - Weight 69.4 kg (153 lb) 09/06/2024 8:32 PM OCEAN FREIGHT AGENT Height 157.5 cm (5' 2 ) 09/06/2024 8:32 PM OCEAN FREIGHT AGENT Body Mass Index 27.98 09/06/2024 8:32 PM OCEAN FREIGHT AGENT Plan of Treatment Health Maintenance Due Date Last Done Comments Cervical Cancer Screening Pa p Smear (Age 30 to 64) Every 3 Years 1966 Colorectal Cancer Screening Colonoscopy (10 Years) 1966 Annual Physical 1969 Hepatitis C 01/10/1984 Hepatitis B Vaccines (1 of 3 - 19+ 3-dose series) 1985 Cervical Cancer Screening Pa p with HPV Testing (Age 30 to 64) Every 5 Years 01/10/1996 Cervical Cancer Screening wi th HPV 01/10/1996 Pneumococcal Vaccine: 50+ Years (1 of 1 - PCV) 01/10/2016 Zoster Vaccines (1 of 2) 01/10/2016 DTaP, Tdap and Td Vaccines ( 2 - Td or Tdap) 11/08/2020 11/08/2010 COVID-19 Vaccine (1 - 2023-2 5 season) 2024 Mammogram Screening 10/25/2026 10/25/2024, 08/04/2022, 07/05/2021 Meningococcal B Vaccine Aged Out No l onger eligible based on patient's age to complete this topic Meningococcal Vaccine Aged Out No deniz vanesa eligible based on patient's age to complete this topic RSV Immunizations Under 20 Months Aged Out No longer eligible b ased on patient's age to complete this topic Procedures Procedure Name Priority Date/Time Associated Diagnosis Comments MG DIAG IMPLANT W JESSIE MIKE DIGI Routine 10/25/2024 1:44 PM OCEAN FREIGHT AGENT Solitary cyst of right breast from Last 3 Months or Most Recently Relevant to Health Maintenance Results * MG DIAG IMPLANT W JESSIE MIKE DIGI (10/25/2024 1:44 PM OCEAN FREIGHT AGENT) Anatomical Region Laterality Modality Breast Bilateral Mammography, Rad iographic Imaging 10/25/2024 2:07 PM OCEAN FREIGHT AGENT Impressions 10/25/2024 2:14 PM OCEAN FREIGHT AGENT ===== IMPRESSION: ===== 1. Benign mammogram. 2. No sonographic correlate identified within the right superior breast to previously reported cyst seen on in office ultrasound. Assessment: ACR BI-RADS 2 - BENIGN FINDING(S) Recommendation: 1. Consider breast MRI for further evaluation of the reported cyst seen in the right superior breast on in-office ultrasound. Alternatively, the right breast could be rescanned under ultrasound in office with site of cyst marked for subsequent no cost reevaluation under breast ultrasound. 2. Otherwise, routine screening mammogram recommended in 1 year. Ordered By: ARACELIS GEIGER Interpreted By: Krunal Deutsch MD, 10/25/2024 2:07 PM Narrative 10/25/2024 2:14 PM OCEAN FREIGHT AGENT [facility] [address] [place] [address] Examination: Digital bilateral diagnostic breast 3D tomography and unilateral right breast ultrasound [id number] Exam Date/Time: 10/25/2024 12:40 PM Reason For Exam: History of bilateral breast implants. Diffuse regional tenderness in the right breast. No palpable abnormality. Reported right breast cyst seen on in office ultrasound. Comparison: Screening mammograms 08/04/2022, 07/05/2021, 08/20/2019, 04/06/2018. Technique: 3D tomographic views of both breasts. Sonographic grayscale images of the areas of interest of the right breast in multiple projections. Doppler used to assess vasculature. Tissue density: There are scattered areas of fibroglandular density. Findings: There are bilateral breast implants with mildly lobulated contour, similar to prior study. A few scattered benign-appearing calcifications noted. No focal asymmetry, architectural distortion, or suspicious microcalcifications seen. Limited ultrasound was performed of the right superior breast. No discrete solid mass or cyst is identified. There is mild undulated contour of the breast implant as seen on image 5. Findings were discussed with the patient in the presence of instrument technologist Shyanne. Patient reports diffuse tenderness in the right breast. No focal pinpoint pain. No palpable abnormality. Patient reports that an in-office ultrasound revealed a cyst in the right breast. This is not identified on current study. Current mammogram is considered BI-RADS 2 benign, however an MRI could be performed for further evaluation. An alternative would be to re-scan in office and to have site of previously seen cyst marked for subsequent no-cost re-evaluation via ultrasound. Patient was instructed to contact our department should she develop new palpable abnormality or focal pinpoint pain. Patient expressed understanding and agreement with plan. us Aracelis Geiger MD MAMMO Final Res ult from Last 3 Months or Most Recently Relevant to Health Maintenance Insurance [facility] Care Teams Emergency Vehicle Operations Instructor Relationship Specialty Start Date End Date Rocio Lei MD PCP - General FAMILY PRACTICE 10/13/20
--- OUTSIDE RECORDS SUMMARY | 2025-02-11 09:15 | XMS_ITS | Clinical Summary ---
Author Organization [facility] Medical [facility] 2 Address [address] [place] [address] Care Team Providers Care Hydrometallurgical Engineer Name Role Phone MarbinCyndi mcclellan LORRAINE Primary Care Provider [phone] Deon José MD Unavailable [phone] Gabriel Sanders MD Unavailable [phone] Allergies Active Allergy Reactions Criticality Noted Date [...] (05/08/2020): Added automatically from request for surgery [id number] Anxiety 04/13/2020 Depressive disorder 04/13/2020 Hemorrhoids 04/13/2020 Herpes labialis 04/13/2020 Insomnia 04/13/2020 Mechanical complication due to breast prosthesis 12/27/2010 Grade III hemorrhoids Immunizations Immunization Administration Dates Next Due Tdap 11/08/2010 Surgical History Surgery Date Site/Laterality Comments COLONOSCOPY 08/28/2017 CHOLECYSTECTOMY 10/23/2010 - 10/22/2011 HERNIA REPAIR 10/23/1974 - 10/22/1975 Medical History Medical History Date Comments Thyroid disease Anxiety Grade III hemorrhoids Family History Medical History Relation Name Comments No Known Problems Father No Known Problems Mother Relation Name Status Comments Father Mother Social History Tobacco Use Types Packs/Day Years Used Date Smoking Tobacco: Former Personal Safety Answer Date Recorded Getting School Help Needed Not on file 01/05 Comments Unknown Sex and Gender Information Value Date Recorded Sex Assigned at Not on file 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
== END 2025-02-11 08:43 | disposition home or self-care (01) ==
PROVIDERS: PCP Family Medicine; Visit Provider Surgery
DX: N64.4 Mastodynia (principal); Z98.82 Breast implant status
CPT/HCPCS: 77047

== ENCOUNTER 2025-05-02 14:56 | Outpatient (CLI) | payer BC, SELFPAY ==
--- NOTE | ~2025-05-02 | DEXA_ITS ---
Bone Density Report Name: SRIKANTH STEWART Age: 60 Sex: Female Ethnicity: White Date of : 1965 Indication: postmenopausal; screening for osteoporosis; Referring Provider: SARAH OROURKE Study: Bone densitometry was performed. Exam Date: May 02, 2025 Accession number: [id number] Bone Density: Region BMD T-score Z-score Classification AP Spine(L1-L4) 0.940 -1.0 0.4 Normal Femoral Neck (Left) 0.604 -2.2 -1.0 Osteopenia Total Hip (Left) 0.829 -0.9 0.0 Normal Femoral Neck (Right) 0.640 -1.9 -0.6 Osteopenia Total Hip (Right) 0.872 -0.6 0.3 Normal Total Hip Mean 0.850 -0.8 0.2 Normal World Health Organization criteria for BMD impression classify patients as: Normal (T-score at or above -1.0), Osteopenia (T-score between -1.0 and -2.5), or Osteoporosis (T-score at or below -2.5). 10-year Fracture Risk: FRAX not reported because: Treated for osteoporosis Clinical Information Provided by Patient: Is being treated for osteoporosis Has used the following medications: HRT (i.e. estrogen/hormone therapy), Vitamin D, Calcium Patient maximum height was 62 Menopause Age: 55 No regular weight bearing exercise Does not regularly consume dairy products Drinks caffeinated beverages Onset of menses at age 13 Number of children 2 Impression: The patient has low bone mass, based on the Left Femoral Neck T-score. Discussion: It is important to ask patients whether they are taking their medications and to encourage continued and appropriate compliance with their osteoporosis therapies to reduce fracture risk. It is also important to review their risk factors and encourage appropriate calcium and vitamin D intakes, exercise, fall prevention and other lifestyle measures. Follow-Up: Consider a repeat BMD and Vertebral Fracture Assessment (VFA) exam in 2 years or sooner if medically necessary, to reassess this patient's status. Reported by: XIMENA on 05/02/2025 3:14:00 PM. Reviewed, dictated and finalized at location A.
== END 2025-05-02 14:57 | disposition home or self-care (01) ==
LOC: MICIMG 14:57
PROVIDERS: PCP Family Medicine; Visit Provider Obstetrics & Gynecology Gynecology
DX: Z78.0 Asymptomatic menopausal state (principal); M85.852 Other specified disorders of bone density and structure, left thigh; M85.851 Other specified disorders of bone density and structure, right thigh
CPT/HCPCS: 77080